=== PATIENT | female | born 1990 | race Caucasian/White ===

== ENCOUNTER 2019-08-10 07:08 | Day surgery (SDC) | payer OTHER ==
[2019-08-08 16:39] LABS: URINE HCG NEGATIVE (NEG)
[2019-08-08 16:43] LABS: CLARITY,URINE CLEAR (Clear); GLUCOSE, URINE NEGATIVE (Neg); KETONES,URINE NEGATIVE (Neg); LEUKOCYTE ESTERASE ,URINE NEGATIVE (Neg); NITRITES, URINE NEGATIVE (Neg); OCCULT BLOOD,URINE TRACE-INTACT (Neg); PROTEIN,URINE NEGATIVE (Neg); UROBILINOGEN,URINE 0.2 E.U/dL (0.2-1.0)
[2019-08-08 16:45] LABS: BASOPHILS % (AUTO) 0.2 % (0-1); EOSINOPHILS # (AUTO) 0.2 X10'3 (0-0.9); EOSINOPHILS % (AUTO) 1.9 % (0-6); LYMPHOCYTES # (AUTO) 2.5 X10'3 (1.1-4.8); LYMPHOCYTES % (AUTO) 28.3 % (21-51); MEAN CORPUSCULAR HGB CONC 34.1 g/dL (33.0-36.5); MEAN PLATELET VOLUME 7.9 FL (7.4-10.4); MONOCYTES # (AUTO) 0.6 X10'3 (0-0.9); MONOCYTES % (AUTO) 6.2 % (2-12); NEUTROPHILS # (AUTO) 5.7 X10'3 (1.8-7.7); NEUTROPHILS % (AUTO) 63.4 % (42-75); PRE OP HEMATOCRIT 34.9 % (35.0-45.0); PRE OP HEMOGLOBIN 11.9 g/dL (12.0-16.0); PRE OP PLATELET COUNT 297 X10'3 (140-440); RED BLOOD COUNT 4.26 X10'6 (4.20-5.60)
[2019-08-08 16:48] LABS: COLOR,URINE STRAW (Yellow); UA COLLECTION TYPE CLN CATCH MIDSTREAM
[2019-08-08 17:03] LABS: RBC,URINE 0-2 /HPF (0-2); WBC,URINE 0-4 /HPF (0-4)
[2019-08-08 17:04] LABS: BACTERIA,URINE FEW /HPF (Neg); SQUAMOUS EPITHELIAL CELL,UR FEW /LPF (FEW)
[~2019-08-10] VITALS: Ht 149.9 cm; Wt 65.3 kg
[2019-08-10] VITALS (11 sets, daily range): BP systolic 89–118; BP diastolic 52–84
[~2019-08-10 07:08] MED LIST: NO HOME MEDS
[2019-08-10] MEDS ORDERED: ringers solution, lacted 1,000 ML IV SCH ×2 (07:28→07:30)
[2019-08-10] MEDS ORDERED: famotidine 20mg tablet PO ONE (07:30)
[2019-08-10] MEDS ORDERED: hydrALAZINE 20mg/ml inj. IV PRN (07:30)
[2019-08-10] MEDS ORDERED: labetalol 20mg/4ml (5mg/ml) syringe IV PRN (07:30)
[2019-08-10] MEDS ORDERED: morphine 4 MG/ML inj SYRINge IV PRN ×2 (07:30)
[2019-08-10] MEDS ORDERED: fentaNYL/PF 50MCG/1 ML 2ML syringe IV PRN ×2 (07:30)
[2019-08-10] MEDS ORDERED: ondansetron/PF 4mg/2ml inj IV PRN (07:30)
[2019-08-10] MEDS ORDERED: BUPIVAcaine 0.5% inj/PF 30 ML ONE (09:33)
[2019-08-10] MEDS ORDERED: neostigmine methylsulfate 1 MG/ML 10ml vial ONE (10:26)
[2019-08-10] MEDS ORDERED: sevoflurane 250ml liquid IH ONE (10:26)
[2019-08-10] MEDS ORDERED: glycopyrrolate 0.2mg/ml inj ONE (10:26)
[2019-08-10] MEDS ORDERED: dexamethasone sod phosphate 10mg/ml inj ONE (10:26)
[2019-08-10] MEDS ORDERED: midazolam 2 mg/2 ml injection ONE (10:31)
[2019-08-10] MEDS ORDERED: fentaNYL/PF 50MCG/1 ML 2ML syringe ONE (10:31)
[2019-08-10] MEDS ORDERED: propofol inj 20 ML IV ONE (10:37)
[2019-08-10] MEDS ORDERED: LIDOcaine 2% (20mg/ml) 5ml vial ONE (10:37)
[2019-08-10] MEDS ORDERED: rocuronium 10mg/ml inj IV ONE (10:38)
[2019-08-10] MEDS ORDERED: ondansetron/PF 4mg/2ml inj ONE (10:38)
--- NOTE | 2019-08-10 11:12 | NUR ---
Received from OR via [facility] , accompanied by Anesthesiologist SHRUTI and report given by Anesthesiolgist. PATIENT WITH 20G PIV IN LEFT UE. PATIENT WITH 2 ABDOMINAL LAP SITES THAT ARE CDI. VSS AT THIS TIME. VSS AT THIS TIME. Addendum: 08/10/19 at 1208 by Robin Estrada RN, RN Amended: Links added.
[2019-08-10] MEDS ORDERED: BUPIVAcaine 0.5% inj/PF 30 ml vial IJ ONE (11:18)
[2019-08-10] MEDS ORDERED: acetaminophen 1,000mg/100ml IV 100 ML IV ONE (12:32)
--- NOTE | 2019-08-10 12:52 | NUR ---
ALL DC CRITERIA HAS BEEN MET. IV TAKEN OUT WITHOUT COMPLICATIONS. ALL INSTRUCTIONS COVERED AND ALL QUESTIONS ANSWERED. DRESSINGS CDI. OUT VIA WHEELCHAIR TO PERSONAL VEHICLE WHERE PATIENT WAS SECURED IN AND DRIVEN HOME BY FAMILY. Addendum: 08/10/19 at 1309 by Robin Estrada RN, RN Amended: Links added.
== END 2019-08-10 12:52 | disposition home or self-care (01) ==
LOC: PAS 07:08
PROVIDERS: ATTEND Specialist
DX: Z30.2 Encounter for sterilization (principal); E66.9 Obesity, unspecified; Z68.29 Body mass index [BMI] 29.0-29.9, adult; Z98.890 Other specified postprocedural states; Z79.899 Other long term (current) drug therapy
CPT/HCPCS: 36415; 58670; 81001; 81025; 82948; 85025; J0131; J1100; J2001; J2250; J2405; J2704; J2710; J3010; A4618; A7000; J3490; J7120

== ENCOUNTER 2020-09-02 15:31 | Emergency (ER) | payer OTHER ==
[~2020-09-02] VITALS: Ht 149.9 cm; Wt 59.1 kg
[2020-09-02] MEDS ORDERED: dexamethasone sod phosphate 10mg/ml inj PO STA (16:15)
== END 2020-09-02 16:35 | disposition home or self-care (01) ==
LOC: ER 15:31
DX: M94.0 Chondrocostal junction syndrome [Tietze] (principal); R07.89 Other chest pain; Z20.828 Contact with and (suspected) exposure to other viral communicable diseases
CPT/HCPCS: 36415; 87635; 99283; J1100